=== PATIENT | male | born 1955 | race Two or more races ===

== ENCOUNTER 2022-03-27 11:47 | Inpatient (IN) | payer MEDICARE, OTHER ==
[~2022-03-27] VITALS: Ht 175.3 cm; Wt 59.9 kg
--- NOTE | 2022-03-27 11:51 | NUR ---
To ER bed 11, ORLINA RA102" From Home Abdominal pain/constipation x3d. Nausea" Abdomen distended/bloated, aaox0, breathing even and non labored, connected to monitor
[2022-03-27] MEDS ORDERED: PANTOPRAZOLE 40 MG VIAL ONE (12:12)
--- NOTE | 2022-03-27 12:27 | NUR ---
TAKEN TO CT VIA ALE
[2022-03-27] MEDS ORDERED: IV NS 0.9% 500 ML BAG IV ONE (12:30)
[2022-03-27] MEDS ORDERED: PANTOPRAZOLE 40 MG VIAL IV ONE (12:30)
[2022-03-27 12:33] LABS: BASOPHILS % (AUTO) 0.4 % (0.0-2.0); EOSINOPHILS % (AUTO) 1.8 % (0.0-6.0); HEMATOCRIT 32 % (39-51); HEMOGLOBIN 10.3 g/dL (13.5-17.5); LYMPHOCYTES % (AUTO) 16.2 % (20.0-44.0); MEAN CORPUSCULAR HGB CONC 32 g/dl (31.0-36.0); MEAN CORPUSCULAR VOLUME 63 fL (80-96); MONOCYTES # (AUTO) 0.7 K/uL (0.1-1.30); NEUTROPHILS # (AUTO) 4.3 K/uL (1.8-8.9); NEUTROPHILS % (AUTO) 70.6 % (43.0-81.0); PLATELET COUNT (AUTO) 161 K/uL (150-450); RED BLOOD CELL COUNT(AUTO) 5.15 MIL/uL (4.5-6.0); WHITE BLOOD COUNT (AUTO) 6.1 K/uL (4.3-11.0)
--- NOTE | 2022-03-27 12:50 | NUR ---
URINE COLLECTED AND SENT TO LAB
[2022-03-27 12:51] LABS: ALBUMIN 3.8 g/dL (3.4-5.0); BILIRUBIN,DIRECT 0.2 mg/dL (0.0-0.2); CALCIUM, SERUM 8.4 mg/dL (8.5-10.1); CREATININE 1.2 mg/dL (0.6-1.3); POTASSIUM 3.2 mmol/L (3.5-5.1); TOTAL PROTEIN, SERUM 7.6 g/dL (6.4-8.2)
--- NOTE | 2022-03-27 13:19 | NUR ---
SON CASTILLO [phone] SON FIORDALIZA [phone]
--- NOTE | 2022-03-27 13:19 | NUR ---
DR. BLOUNT SPEAKING WITH DR. REECE.
--- NOTE | 2022-03-27 13:21 | NUR ---
CALLED DR. WAHL [phone] OPTION 2 LEFT VM
[2022-03-27 13:22] LABS: BILIRUBIN,URINE NEGATIVE (NEGATIVE); LEUKOCYTE ESTERASE ,URINE NEGATIVE (NEGATIVE); NITRITE, URINE NEGATIVE (NEGATIVE); PROTEIN,URINE NEGATIVE (NEGATIVE); UGLUCOSE NEGATIVE (NEGATIVE); UROBILINOGEN,URINE 0.2 EU/dL (0.2)
--- NOTE | 2022-03-27 13:23 | NUR ---
COVID SWAB DONE AND SENT TO LAB
[2022-03-27 13:24] LABS: COLOR,URINE STRAW (YELLOW)
--- NOTE | 2022-03-27 13:50 | NUR ---
DR REECE TALKING TO THE WASI,PATIENT'S ON
[2022-03-27] MEDS ORDERED: ONDANSETRON HCL/PF 4 MG/2 ML VIAL IVP ONE (14:00)
[2022-03-27] MEDS ORDERED: MORPHINE SULFATE INJ 2 MG/ML DISP.SYRIN IV ONE (14:00)
[2022-03-27] MEDS ORDERED: ASPI-1169 PO (14:06)
[2022-03-27] MEDS ORDERED: CARV3.12 PO (14:06)
[2022-03-27] MEDS ORDERED: METF-440 PO (14:06)
[2022-03-27] MEDS ORDERED: ONDANSETRON HCL/PF 4 MG/2 ML VIAL ONE (14:07)
[2022-03-27] MEDS ORDERED: MORPHINE SULFATE INJ 4 MG/ML DISP.SYRIN ONE (14:08)
[2022-03-27] MEDS ORDERED: IV NS 0.9% 1,000 ML IV SCH (14:30)
[2022-03-27] MEDS ORDERED: ONDANSETRON HCL/PF 4 MG/2 ML VIAL IVP PRN (14:30)
[2022-03-27] MEDS ORDERED: hydrALAZINE HCL IV 20 MG VIAL IV PRN (14:30)
[2022-03-27] MEDS ORDERED: MORPHINE SULFATE INJ 2 MG/ML DISP.SYRIN IV PRN (14:30)
[2022-03-27] MEDS ORDERED: ACETAMINOPHEN 325 MG TABLET PO PRN (14:30)
--- NOTE | 2022-03-27 14:48 | NUR ---
PATIENT WILL HAVE SIGMOIDOSCOPY WITH DR SCHREIBER AT 7PM, PT WILL REMAIN NPO, SON AT BEDSIDE AWARE
--- NOTE | 2022-03-27 15:25 | NUR ---
CALLED PAULA MOMIN FOR CONSENT, DID NOT PRODUCTION CLERK, LEFT A MESSAGE
--- NOTE | 2022-03-27 15:26 | NUR ---
PATIENT PAULA MOMIN CANNOT DECIDE YET IF HE'LL GIVE CONSENT FOR SIGMOIDOSCOPY, NG TUBE AND ENEMA
[2022-03-27] MEDS: DEXTROSE 50%-WATER 50 ML DISP.SYRIN IV PRN (15:30)
[2022-03-27] MEDS: BLOOD SUGAR DIAGNOSTIC 1 EACH STRIP IN SCH ×3 (15:30→21:59)
[2022-03-27] MEDS ORDERED: DEXTROSE 50%-WATER 50 ML DISP.SYRIN ONE (16:12)
[2022-03-27] MEDS: SOD FERRIC GLUC 125 MG in IV NS 0.9% 100 ML IV SCH (16:25)
--- NOTE | 2022-03-27 16:31 | NUR ---
room 311-2
--- NOTE | 2022-03-27 17:02 | NUR ---
TRANSFERRED TO BED 311 IN STABLE CONDITION, BEDSIDE REPORT GIVEN TO BEATRIZ MYERS FOR ROGERIO
[2022-03-27] MEDS: POTASSIUM CL. PREMIX PERIPHER. 50 ML IV SCH ×4 (18:55→22:25)
[2022-03-27] MEDS ORDERED: MORPHINE SULFATE INJ 4 MG/ML DISP.SYRIN IV ONE (19:00)
--- NOTE | 2022-03-27 19:15 | NUR ---
RN NOTE RECEIVED REPORT FROM JOSEPHINE MYERS. PT STILL DOWN IN O.R. AT THIS TIME.
[2022-03-27 20:00] VITALS: BP 135/54
[2022-03-27] MEDS ORDERED: ANESTHESIA TRAY IN PYXIS 1 EA TRAY MC ONE (20:07)
--- NOTE | 2022-03-27 20:20 | NUR ---
RN NOTE PT STILL DOWN IN O.R. AT THIS TIME
[2022-03-27] MEDS ORDERED: ACETAMINOPHEN 650 MG/SUPP.RECT RC PRN (20:30)
--- NOTE | 2022-03-27 20:34 | NUR ---
RN NOTE PT BACK FROM O.R. POST-SIGMOIDOSCOPY BY . REPORT RECEIVED FROM RNSARAH. PT AWAKE, NONVERBAL. VS 135/54, 51, 18, 97.3, 99%. PT TO CONTINUE NPO STATUS. PT IN NO ACUTE DISTRESS. WILL CONT TO MONITOR
[2022-03-27 21:00] VITALS: BP 135/54
[2022-03-27] MEDS: PANTOPRAZOLE 40 MG VIAL IV SCH (21:22)
[2022-03-27] MEDS: HEPARIN SODIUM, PORCINE 5000 UNITS/1 ML VIAL SQ SCH (21:45)
--- NOTE | 2022-03-27 22:00 | NUR ---
RN NOTE BS 68. PT S/P SIGMOIDOSCOPY EARLIER TONIGHT AND CONTINUES ON NPO STATUS. ON-CALL HOSPITALIST MAUREEN BROOKS INFORMED
--- NOTE | 2022-03-27 22:15 | NUR ---
RN NOTE RECEIVED NEW ORDERS FROM CECILIA CHANG TO CHANGE IVF NS TO D5NS @100ML/HR. NOTED AND CARRIED OUT.
[2022-03-27] MEDS: IV D5/ 0.9% NACL 1,000 ML IV SCH (22:26)
--- NOTE | 2022-03-27 23:20 | NUR ---
RN NOTE SON, MERRILL ([phone]) CALLED AND UPDATED ON PT'S STATUS. HE WILL CALL BACK IN AM TO GET UPDATE FROM MD RE SIGMOIDOSCOPY.
[2022-03-28] VITALS: BP 120/65
[2022-03-28 04:00] VITALS: BP 116/58
[2022-03-28] MEDS: BLOOD SUGAR DIAGNOSTIC 1 EACH STRIP IN SCH ×4 (06:16→22:22)
[2022-03-28 06:44] LABS: BASOPHILS % (AUTO) 0.5 % (0.0-2.0); EOSINOPHILS % (AUTO) 0.5 % (0.0-6.0); HEMATOCRIT 28 % (39-51); LYMPHOCYTES # (AUTO) 0.6 K/uL (0.8-4.8); LYMPHOCYTES % (AUTO) 12.4 % (20.0-44.0); MEAN CORPUSCULAR HGB CONC 32 g/dl (31.0-36.0); MEAN CORPUSCULAR VOLUME 63 fL (80-96); MONOCYTES # (AUTO) 0.5 K/uL (0.1-1.30); MONOCYTES % (AUTO) 10.5 % (2.0-12.0); NEUTROPHILS # (AUTO) 3.7 K/uL (1.8-8.9); NEUTROPHILS % (AUTO) 76.1 % (43.0-81.0); PLATELET COUNT (AUTO) 130 K/uL (150-450); RED BLOOD CELL COUNT(AUTO) 4.45 MIL/uL (4.5-6.0); WHITE BLOOD COUNT (AUTO) 4.9 K/uL (4.3-11.0)
--- NOTE | 2022-03-28 06:53 | NUR ---
RN NOTE BS THIS MORNING 103MG/DL. ONGOING IVF D5NS @100ML/HR AND SURJIT WELL. PT SLEPT WELL DURING THE SHIFT WITH NO S/S OF PAIN, NO GRIMACING/YELLING OUT NOTED. RESPIRATIONS EVEN/UNLABORED. F/C DRAINING CLEAR YELLOW URINE, OUTPUT 950 THIS SHIFT. PT IN NO ACUTE DISTRESS. SAFETY MEASURES MAINTAINED.
[2022-03-28] MEDS: IV D5/ 0.9% NACL 1,000 ML IV SCH ×3 (06:57→21:26)
[2022-03-28 07:31] LABS: ALBUMIN 2.8 g/dL (3.4-5.0); BILIRUBIN,TOTAL 0.7 mg/dL (0.2-1.0); CALCIUM, SERUM 7.9 mg/dL (8.5-10.1); MAGNESIUM 2.4 mg/dL (1.8-2.4); PHOSPHORUS 3.7 mg/dL (2.5-4.9); POTASSIUM 4.3 mmol/L (3.5-5.1); TOTAL PROTEIN, SERUM 5.9 g/dL (6.4-8.2)
--- NOTE | 2022-03-28 07:35 | NUR ---
ms rn received on bed, ,awake,oriented x1,not in any form of distress,respirations even and unlabored,no sob noted, lungs are diminish,abdomen soft,positive bowel sounds, no s/s of pain at this time,came in w/ dx of volvulus, s/o sigmoidoscopy last night ,will monitor patient.
--- NOTE | 2022-03-28 10:00 | NUR ---
ms vann npo at this time, was seen by rich stanley/ orders made and carried out.
[2022-03-28] MEDS: HEPARIN SODIUM, PORCINE 5000 UNITS/1 ML VIAL SQ SCH ×2 (10:56→21:21)
[2022-03-28] MEDS: DEXTROSE 50%-WATER 50 ML DISP.SYRIN IV PRN ×2 (11:03→11:56)
[2022-03-28] MEDS: SOD FERRIC GLUC 125 MG in IV NS 0.9% 100 ML IV SCH (14:19)
--- NOTE | 2022-03-28 18:00 | NUR ---
ms rn was able to call and spoke w/ dr. adair w/ order to ok to feed patient, blood sugar - 76, gave orange juice and crackers, tolerated well, will order food for breakfast
--- NOTE | 2022-03-28 19:20 | NUR ---
ms rn bs now - 138 - no coverage given, patient is sleeping now, endorsed tonight shift.
--- NOTE | 2022-03-28 19:30 | NUR ---
MS RN OPENING NOTE RECEIVED PATIENT IN BED, A/OX1, COOPERATIVE. PATIENT'S SON AT BEDSIDE. NO S/S OF APPARENT DISTRESS ON ROOM AIR. NOT EXHIBITING PAIN VIA FLACC. ABDOMEN NOTED TO BE DISTENDED, SOFT AND AIRY DURING PALPATION. IV D5 NS RUNNING @100MLS/HR. SAFETY IN PLACE WILL CONTINUE WITH THE PLAN OF CARE FOR PATIENT.
[2022-03-28 20:00] VITALS: BP_SYST 135; BP_SYST 137; BP_DIAS 72
[2022-03-28] MEDS: PANTOPRAZOLE 40 MG VIAL IV SCH (20:04)
[2022-03-28] MEDS: INSULIN REGULAR, HUMAN 100 UNIT/ML 3 ML VIAL SQ PRN (22:33)
[2022-03-29] MEDS: IV D5/ 0.9% NACL 1,000 ML IV SCH (05:55)
[2022-03-29] MEDS: INSULIN REGULAR, HUMAN 100 UNIT/ML 3 ML VIAL SQ PRN (06:43)
[2022-03-29] MEDS: BLOOD SUGAR DIAGNOSTIC 1 EACH STRIP IN SCH ×2 (06:43→12:08)
--- NOTE | 2022-03-29 06:43 | NUR ---
MS RN NOTE BLOOD SUGAR 101 THIS AM. NO COVERAGE NEEDED.
--- NOTE | 2022-03-29 06:45 | NUR ---
MS RN CLOSING NOTE PATIENT IN BED, A/OX1, OBEYS COMMANDS AND ABLE TO MAKE NEEDS KNOWN WITH GARBLED SPEECH. NO S/S OF APPARENT DISTRESS ON ROOM AIR. NOT EXHIBITING PAIN VIA FLACC. ABDOMEN SOFT AND TENDER TO TOUCH. PATIENT HAD X1 BM THIS AM. D5 NS RUNNING @100MLS/HR. NEEDS ATTENDED. ALL SCHEDULED MEDICATIONS ADMINISTERED. SAFETY KEPT IN PLACE THE WHOLE SHIFT. WILL ENDORSE TO MORNING SHIFT RN FOR CONTINUITY OF CARE.
--- NOTE | 2022-03-29 07:19 | NUR ---
MS RN NOTE PATIENT CRYING OUT LOUD AT THIS TIME. ASSUMING IT'S PAIN. GIVEN MORPHINE FOR PAIN VIA FLACC.
--- NOTE | 2022-03-29 07:35 | NUR ---
ms rn received on bed, awake,alert,oriented x1,not in any form of distress, respirations even and unlabored,no sob noted, lungs are diminished,abdomen soft,positive dowel sounds denies pain at this time, silva to gravity intact w/ yellowish urine output, will monitor patient.
[2022-03-29 07:58] VITALS: BP 158/75
--- NOTE | 2022-03-29 08:30 | NUR ---
ms rn feed patient tolerated well w/o vomiting,had one bm at this time.
[2022-03-29 08:33] LABS: BASOPHILS % (AUTO) 0.7 % (0.0-2.0); EOSINOPHILS % (AUTO) 1.7 % (0.0-6.0); HEMATOCRIT 31 % (39-51); HEMOGLOBIN 9.7 g/dL (13.5-17.5); LYMPHOCYTES # (AUTO) 0.9 K/uL (0.8-4.8); LYMPHOCYTES % (AUTO) 21.7 % (20.0-44.0); MEAN CORPUSCULAR HGB CONC 31 g/dl (31.0-36.0); MEAN CORPUSCULAR VOLUME 63 fL (80-96); MONOCYTES # (AUTO) 0.3 K/uL (0.1-1.30); MONOCYTES % (AUTO) 7.9 % (2.0-12.0); NEUTROPHILS # (AUTO) 2.7 K/uL (1.8-8.9); PLATELET COUNT (AUTO) 150 K/uL (150-450); RED BLOOD CELL COUNT(AUTO) 4.93 MIL/uL (4.5-6.0); WHITE BLOOD COUNT (AUTO) 3.9 K/uL (4.3-11.0)
[2022-03-29] MEDS: PANTOPRAZOLE 40 MG VIAL IV SCH (09:02)
[2022-03-29] MEDS: HEPARIN SODIUM, PORCINE 5000 UNITS/1 ML VIAL SQ SCH (09:04)
[2022-03-29 09:05] LABS: ALBUMIN 3.2 g/dL (3.4-5.0); BILIRUBIN,TOTAL 0.9 mg/dL (0.2-1.0); CALCIUM, SERUM 8.5 mg/dL (8.5-10.1); POTASSIUM 3.6 mmol/L (3.5-5.1); TOTAL PROTEIN, SERUM 6.8 g/dL (6.4-8.2)
--- NOTE | 2022-03-29 09:30 | NUR ---
ms rn was seen by md stanley/ order to be discharge today.
[2022-03-29] MEDS ORDERED: FERR325T23 PO (10:30)
[2022-03-29] MEDS ORDERED: PANT40TA2 PO (10:30)
--- NOTE | 2022-03-29 11:33 | NUR ---
ms rn bs - 136- coverage not given patient is not eating much and hx of hypoglycemia from previous shifts.
--- NOTE | 2022-03-29 12:00 | NUR ---
ms rn son was aware of the discharge, wants to speak w/ the doctor, gave epic number.
--- NOTE | 2022-03-29 12:30 | NUR ---
rn silva catheter removed, will monitor output.
--- NOTE | 2022-03-29 14:00 | NUR ---
ms rn patient had urine output moderate in amount,all needs attended.
--- NOTE | 2022-03-29 14:10 | NUR ---
ms nr son came to see patient, started to scream now.
[2022-03-29] MEDS: SOD FERRIC GLUC 125 MG in IV NS 0.9% 100 ML IV SCH (14:33)
--- NOTE | 2022-03-29 15:00 | NUR ---
ms bottom turning lathe turner instructions given,patient calm down now.
--- NOTE | 2022-03-29 15:30 | NUR ---
ms rn patient transported to home,all needs attended, no distress noted.
== END 2022-03-29 15:30 | disposition home or self-care (01) | DRG 345 ==
LOC: ER 11:52 → TRANSITION 15:01 → TELE 16:46 → MED 22:44
PROVIDERS: ADMIT Internal Medicine; ATTEND Internal Medicine
PROC: 0DSN8ZZ Reposition Sigmoid Colon, Via Natural or Artificial Opening Endoscopic (ICD-10-PCS; principal; 2022-03-27)
PROC: 0D9N8ZZ Drainage of Sigmoid Colon, Via Natural or Artificial Opening Endoscopic (ICD-10-PCS; 2022-03-27)
DX: K56.2 Volvulus (principal); I69.351 Hemiplegia and hemiparesis following cerebral infarction affecting right dominant side; E87.1 Hypo-osmolality and hyponatremia; N13.30 Unspecified hydronephrosis; E44.0 Moderate protein-calorie malnutrition; E86.0 Dehydration; E87.6 Hypokalemia; I69.320 Aphasia following cerebral infarction; Z20.822 Contact with and (suspected) exposure to COVID-19; I10 Essential (primary) hypertension; E78.00 Pure hypercholesterolemia, unspecified; E11.9 Type 2 diabetes mellitus without complications; D50.9 Iron deficiency anemia, unspecified; E86.1 Hypovolemia; E88.09 Other disorders of plasma-protein metabolism, not elsewhere classified
CPT/HCPCS: 36415; 45330; 71045-TC; 80048-TC; 80053-TC; 80076-TC; 82962-TC; 83605-TC; 83690-TC; 83735-TC; 84100-TC; 85025-TC; 85730-TC; 87081-TC; C9113; C9803; G0378; J1644; J2270; J2405; J2704; J2916; J3480; J3490; J7030; J7042

== ENCOUNTER 2022-06-15 03:43 | Inpatient (IN) | payer MEDICARE, OTHER ==
[~2022-06-15] VITALS: Ht 177.8 cm; Wt 54.9 kg
[~2022-06-15 03:43] MED LIST: ASPI-1169 PO; CARV3.12 PO; FERR325T23 PO; METF-440 PO; PANT40TA2 PO
--- NOTE | 2022-06-15 04:00 | NUR ---
VITALIY FROM HOME FOR MORE ALTERED THAN NORMAL LWK@0300 HX OF STROKE. RECEIVED PATIENT AAOX1. ACCOMPANIED BY SON PALLIATIVE CARE NURSE. PATIENT HAS RIGHT SIDED WEAKNESS, - CP, -SOB. WITH IV CANNULA G20 ON LEFT AC. ATTACHED TO MONITOR, VITALS CHECKED AND BEING MONITORED
--- NOTE | 2022-06-15 04:05 | NUR ---
COVID SWAB DONE AND SENT TO LAB
--- NOTE | 2022-06-15 04:05 | NUR ---
EKG DONE AT BEDSIDE
--- NOTE | 2022-06-15 04:15 | NUR ---
IV CANNULA G20 INSERTED ON LEFT AC. BLOOD DRAWN AND SENT TO LAB
--- NOTE | 2022-06-15 04:22 | NUR ---
SEEN BY DR RAINES AT BEDSIDE
[2022-06-15 04:40] LABS: BASOPHILS % (AUTO) 0.8 % (0.0-2.0); EOSINOPHILS % (AUTO) 1.1 % (0.0-6.0); HEMATOCRIT 34 % (39-51); HEMOGLOBIN 10.8 g/dL (13.5-17.5); LYMPHOCYTES # (AUTO) 0.7 K/uL (0.8-4.8); LYMPHOCYTES % (AUTO) 13.7 % (20.0-44.0); MEAN CORPUSCULAR HGB CONC 32 g/dl (31.0-36.0); MEAN CORPUSCULAR VOLUME 64 fL (80-96); MONOCYTES # (AUTO) 0.2 K/uL (0.1-1.30); MONOCYTES % (AUTO) 4.1 % (2.0-12.0); NEUTROPHILS # (AUTO) 3.9 K/uL (1.8-8.9); NEUTROPHILS % (AUTO) 80.3 % (43.0-81.0); PLATELET COUNT (AUTO) 163 K/uL (150-450); RED BLOOD CELL COUNT(AUTO) 5.37 MIL/uL (4.5-6.0); WHITE BLOOD COUNT (AUTO) 4.9 K/uL (4.3-11.0)
--- NOTE | 2022-06-15 04:50 | NUR ---
PT BROUGHT TO CT DEPT
--- NOTE | 2022-06-15 04:54 | NUR ---
CAME BACK FROM CT.
[2022-06-15 05:05] LABS: CALCIUM, SERUM 8.9 mg/dL (8.5-10.1); CARBON DIOXIDE 32 mmol/L (21-32); CHLORIDE 106 mmol/L (98-107); CREATININE 1.1 mg/dL (0.6-1.3); GLUCOSE 99 mg/dL (74-106); POTASSIUM 4.6 mmol/L (3.5-5.1); SODIUM SERUM 143 mmol/L (136-145); UREA NITROGEN, BLOOD 14 mg/dL (7-18)
[2022-06-15] MEDS ORDERED: DEXTROSE 50%-WATER 50 ML DISP.SYRIN IV PRN (07:00)
[2022-06-15] MEDS ORDERED: ZOLPIDEM TARTRATE 5 MG TABLET PO PRN (07:00)
[2022-06-15] MEDS ORDERED: Z GUARD REMEDY 4 OZ OINT TP PRN (07:00)
[2022-06-15] MEDS ORDERED: MAGNESIUM HYDROXIDE 30 ML UDC PO PRN (07:00)
[2022-06-15] MEDS ORDERED: ONDANSETRON HCL/PF 4 MG/2 ML VIAL IVP PRN (07:00)
[2022-06-15] MEDS ORDERED: MAG HYDROX/AL HYDROX/SIMETH 30 ML UDC PO PRN (07:00)
[2022-06-15] MEDS: BLOOD SUGAR DIAGNOSTIC 1 EACH STRIP IN SCH ×4 (07:30→21:24)
[2022-06-15 08:16] LABS: BILIRUBIN,URINE NEGATIVE (NEGATIVE); COLOR,URINE YELLOW (YELLOW); LEUKOCYTE ESTERASE ,URINE NEGATIVE (NEGATIVE); NITRITE, URINE NEGATIVE (NEGATIVE); PH,URINE 7.5 (5.0-8.0); PROTEIN,URINE NEGATIVE (NEGATIVE); UGLUCOSE NEGATIVE (NEGATIVE); UROBILINOGEN,URINE 0.2 EU/dL (0.2)
[2022-06-15] MEDS ORDERED: SIMV-49 PO (08:23)
[2022-06-15] MEDS ORDERED: [UNRECOGNIZED DRUG - REMARK] PO (08:24)
[2022-06-15] MEDS: CARVEDILOL 3.125 MG TABLET PO SCH ×2 (09:00→16:36)
[2022-06-15] MEDS ORDERED: PANTOPRAZOLE 40 MG VIAL IV SCH (09:00)
[2022-06-15 09:11] LABS: THYROID STIMULATING HORMONE 1.409 uIU/mL (0.358-3.74)
--- NOTE | 2022-06-15 09:49 | NUR ---
BED 322-1
--- NOTE | 2022-06-15 10:12 | NUR ---
REPORT GIVEN TO NURSE TAMEZ FOR ROGERIO
--- NOTE | 2022-06-15 10:20 | NUR ---
TRANSFERRED TO BED 322 IN STABLE CONDITION
[2022-06-15] MEDS: FERROUS SULFATE (325 MG) 325 MG/TAB TABLET PO SCH ×3 (10:41→16:36)
[2022-06-15] MEDS: IV D5/ 0.9% NACL 1,000 ML IV PRN (10:41)
[2022-06-15] MEDS: ASPIRIN 81 MG TAB.CHEW PO SCH (10:41)
[2022-06-15] MEDS: ACETAMINOPHEN 325 MG TABLET PO PRN ×2 (11:32→12:22)
[2022-06-15] MEDS: INSULIN REGULAR, HUMAN 100 UNIT/ML 3 ML VIAL SQ PRN (12:27)
[2022-06-15] MEDS ORDERED: IOHEXOL-300 100 ML VIAL IV ONE (14:22)
[2022-06-15] MEDS ORDERED: CT SWABBABLE VALVE TRANS SET 1 EA INFUS.SET MC ONE (14:22)
[2022-06-15] MEDS ORDERED: IV NS 0.9% 250 ML IV ONE (14:22)
--- NOTE | 2022-06-15 19:30 | NUR ---
MANAGER OF HEALTH OPENING NOTE RECEIVED PT AWAKE IN BED. SON AT BEDSIDE. CONFUSED AND UNABLE TO COMMUNICATE NEEDS. PT STABLE ON ROOM AIR. NO SOB OR S/S OF RESPIRATORY DISTRESS. BREATHING EVEN AND UNLABORED. ON EXTERNAL MILK ROUTE DELIVERER READING SB 54 BPM. IV ACCESS L HAND AND LAC 20 GAUGE, INTACT AND PATENT, RUNNING D5NS @ 75 ML/HR. SAFETY PRECAUTIONS IN PLACE. BED IN LOWEST LOCKED POSITION, HOB ELEVATED, SIDE RAILS UP X3, AND CALL LIGHT AND TABLE WITHIN REACH. ALL NEEDS MET AT THIS TIME.
[2022-06-15] MEDS: BACLOFEN (10 MG) 10 MG TABLET PO SCH (20:06)
[2022-06-15 20:20] VITALS: BP 165/88
[2022-06-15] MEDS: POLYETHYLENE GLYCOL 3350 17 GM POWD.PACK PO SCH (21:24)
[2022-06-16] VITALS (7 sets, daily range): BP systolic 97–170; BP diastolic 51–89
[2022-06-16] MEDS: IV D5/ 0.9% NACL 1,000 ML IV PRN ×2 (01:07→19:12)
[2022-06-16 06:34] LABS: BASOPHILS % (AUTO) 0.3 % (0.0-2.0); EOSINOPHILS % (AUTO) 0.7 % (0.0-6.0); HEMATOCRIT 31 % (39-51); HEMOGLOBIN 9.9 g/dL (13.5-17.5); LYMPHOCYTES # (AUTO) 0.9 K/uL (0.8-4.8); MEAN CORPUSCULAR HGB CONC 32 g/dl (31.0-36.0); MEAN CORPUSCULAR VOLUME 63 fL (80-96); MONOCYTES # (AUTO) 0.4 K/uL (0.1-1.30); NEUTROPHILS # (AUTO) 4.1 K/uL (1.8-8.9); PLATELET COUNT (AUTO) 155 K/uL (150-450); WHITE BLOOD COUNT (AUTO) 5.4 K/uL (4.3-11.0)
[2022-06-16] MEDS: BLOOD SUGAR DIAGNOSTIC 1 EACH STRIP IN SCH ×4 (06:36→22:06)
--- NOTE | 2022-06-16 06:44 | NUR ---
AERIAL GUNNER SUPERINTENDENT CLOSING NOTE PT AWAKE IN BED. ABLE TO COMMUNICATE NEEDS WITH YES OR NO QUESTIONS. PT STABLE ON ROOM AIR. NO SOB OR S/S OF RESPIRATORY DISTRESS. BREATHING EVEN AND UNLABORED. ON EXTERNAL SAP SOLUTION MANAGER CONSULTANT READING SB 55 BPM. IV ACCESS L HAND AND LAC 20 GAUGE, INTACT AND PATENT, RUNNING D5NS @ 75 ML/HR. ALL DUE MEDS GIVEN ORDERED. TURNED AND REPOSITIONED Q2H. SAFETY PRECAUTIONS IN PLACE AT ALL TIMES. BED IN LOWEST LOCKED POSITION, HOB ELEVATED, SIDE RAILS UP X3, AND CALL LIGHT AND TABLE WITHIN REACH. ALL NEEDS MET AT THIS TIME AND WILL ENDORSE TO ONCOMING NURSE FOR ROGERIO.
[2022-06-16 07:09] LABS: CALCIUM, SERUM 8.6 mg/dL (8.5-10.1); CREATININE 0.9 mg/dL (0.6-1.3); MAGNESIUM 2.5 mg/dL (1.8-2.4); PHOSPHORUS 4.5 mg/dL (2.5-4.9); POTASSIUM 3.8 mmol/L (3.5-5.1)
[2022-06-16] MEDS: ENOXAPARIN SODIUM 40 MG/0.4 ML DISP.SYRIN SQ SCH (07:41)
--- NOTE | 2022-06-16 07:48 | NUR ---
GASKET MAKER OPENING NOTES: RECEIVED PT IN BED AWAKE. CONFUSED AND NEED FREQUENT REORIENTATION NEEDED. NO SOB OR CARDIAC DISTRESS NOTED. ON ROOM AIR AND TOLERATING WELL. ON [place] FLAKER WITH CURRENT READING OF SINUS BARON @54PM. DENIES ANY PAIN AT THIS TIME. WITH IV ACCESS ON L HAND GAUGE 20, LAC GAUGE 20 PATENT AND INTACT WITH D5NS @75ML/HR. SAFETY PRECAUTIONS MAINTAINED: BED LOCKED AND IN LOWEST POSITION. SIDE RAILS UP X 2. CALL LIGHT IN EASY REACH. KEPT RESTED AND COMFORTABLE. WILL MONITOR ACCORDINGLY.
--- NOTE | 2022-06-16 08:39 | NUR ---
RN NOTES: SEEN BY ST AND ST ORDERED TO ADVANCE DIET TO SOFT DIET AND THIN LIQUIDS.
[2022-06-16] MEDS: BACLOFEN (10 MG) 10 MG TABLET PO SCH ×3 (08:54→17:13)
[2022-06-16] MEDS: PANTOPRAZOLE 40 MG TABLET.DR PO SCH (08:54)
[2022-06-16] MEDS: ASPIRIN 81 MG TAB.CHEW PO SCH (08:55)
[2022-06-16] MEDS: CARVEDILOL 3.125 MG TABLET PO SCH ×2 (08:55→17:00)
[2022-06-16] MEDS: SIMVASTATIN 20 MG TABLET PO SCH (17:13)
[2022-06-16] MEDS ORDERED: NA PHOS,M-B/NA PHOS,DI-BA 1 EA ENEMA RC ONE (18:00)
--- NOTE | 2022-06-16 18:54 | NUR ---
FUR IRONER CLOSING NOTES: RECEIVED PT IN BED AWAKE ON HIGH CONFUSED AND NEED FREQUENT REORIENTATION NEEDED. NO SOB OR CARDIAC DISTRESS NOTED. ON ROOM AIR AND TOLERATING WELL. ON [place] PAINTER WITH CURRENT READING OF SINUS BARON @58PM. DENIES ANY PAIN AT THIS TIME. WITH IV ACCESS ON L HAND GAUGE 20, LAC GAUGE 20 PATENT AND INTACT WITH D5NS @75ML/HR. SAFETY PRECAUTIONS MAINTAINED: BED LOCKED AND IN LOWEST POSITION. SIDE RAILS UP X 2. CALL LIGHT IN EASY REACH. KEPT RESTED AND COMFORTABLE. ENDORSED TO SHIP LINER FOR CONTINUITY OF CARE.
--- NOTE | 2022-06-16 21:20 | NUR ---
SUPERVISOR GAME FARM OPENING NOTES: RECEIVED PT IN BED AWAKE ON VERY CONFUSED AND NEED FREQUENT REORIENTATION NEEDED. NO SOB OR CARDIAC DISTRESS NOTED. ON ROOM AIR AND TOLERATING WELL. ON SUPERVISOR SELF SERVICE STORE WITH CURRENT READING OF SINUS BARON @58PM. DENIES ANY PAIN AT THIS TIME. WITH IV ACCESS ON L HAND GAUGE 20, LAC GAUGE 20 PATENT AND INTACT WITH D5NS @75ML/HR. SAFETY PRECAUTIONS MAINTAINED: BED LOCKED AND IN LOWEST POSITION. SIDE RAILS UP X 2. CALL LIGHT IN EASY REACH. KEPT RESTED AND COMFORTABLE. WILL CONTINUE TO MONITOR.
[2022-06-16] MEDS: POLYETHYLENE GLYCOL 3350 17 GM POWD.PACK PO SCH (21:35)
--- NOTE | 2022-06-16 21:35 | NUR ---
ELECTRICAL CONSTRUCTION PROJECT MANAGER NOTES PT REFUSED MIRALAX ENEMA WAS GIVEN DURING AM PT HAVING MANY BOWEL MOVEMENTS.
[2022-06-16] MEDS: INSULIN REGULAR, HUMAN 100 UNIT/ML 3 ML VIAL SQ PRN (22:06)
[2022-06-17] VITALS: BP 158/111
[2022-06-17 04:00] VITALS: BP 160/83
--- NOTE | 2022-06-17 06:35 | NUR ---
WEAVER HAND LOOM OPENING NOTES: RECEIVED PT IN BED AWAKE ON VERY CONFUSED AND NEED FREQUENT REORIENTATION NEEDED. NO SOB OR CARDIAC DISTRESS NOTED. ON ROOM AIR AND TOLERATING WELL. ON DRAGLINE OPERATOR HELPER WITH CURRENT READING OF SINUS BARON DENIES ANY PAIN AT THIS TIME. WITH IV ACCESS ON L HAND GAUGE 20, LAC GAUGE 20 PATENT AND INTACT WITH D5NS @75ML/HR. SAFETY PRECAUTIONS MAINTAINED: BED LOCKED AND IN LOWEST POSITION. SIDE RAILS UP X 2. CALL LIGHT IN EASY REACH. KEPT RESTED AND COMFORTABLE. WILL ENDORSE CARE TO DAY SHIFT NURSE.
[2022-06-17] MEDS: ENOXAPARIN SODIUM 40 MG/0.4 ML DISP.SYRIN SQ SCH (06:48)
[2022-06-17] MEDS: BLOOD SUGAR DIAGNOSTIC 1 EACH STRIP IN SCH ×4 (06:49→22:03)
[2022-06-17] MEDS: INSULIN REGULAR, HUMAN 100 UNIT/ML 3 ML VIAL SQ PRN ×3 (06:49→22:03)
[2022-06-17 08:00] VITALS: BP 145/68
[2022-06-17 08:18] LABS: BASOPHILS % (AUTO) 0.4 % (0.0-2.0); EOSINOPHILS % (AUTO) 0.8 % (0.0-6.0); HEMATOCRIT 32 % (39-51); HEMOGLOBIN 10.1 g/dL (13.5-17.5); LYMPHOCYTES # (AUTO) 0.7 K/uL (0.8-4.8); LYMPHOCYTES % (AUTO) 10.7 % (20.0-44.0); MEAN CORPUSCULAR HGB CONC 32 g/dl (31.0-36.0); MEAN CORPUSCULAR VOLUME 64 fL (80-96); MONOCYTES # (AUTO) 0.4 K/uL (0.1-1.30); MONOCYTES % (AUTO) 6.9 % (2.0-12.0); NEUTROPHILS # (AUTO) 5.3 K/uL (1.8-8.9); NEUTROPHILS % (AUTO) 81.2 % (43.0-81.0); PLATELET COUNT (AUTO) 161 K/uL (150-450); RED BLOOD CELL COUNT(AUTO) 5.02 MIL/uL (4.5-6.0); WHITE BLOOD COUNT (AUTO) 6.5 K/uL (4.3-11.0)
[2022-06-17 08:33] LABS: CALCIUM, SERUM 8.9 mg/dL (8.5-10.1); MAGNESIUM 2.5 mg/dL (1.8-2.4); POTASSIUM 4.3 mmol/L (3.5-5.1)
[2022-06-17] MEDS: PANTOPRAZOLE 40 MG TABLET.DR PO SCH (09:10)
[2022-06-17] MEDS: ASPIRIN 81 MG TAB.CHEW PO SCH (09:10)
[2022-06-17] MEDS: BACLOFEN (10 MG) 10 MG TABLET PO SCH ×3 (09:10→17:41)
[2022-06-17 12:00] VITALS: BP 142/76
[2022-06-17] MEDS: IV D5/ 0.9% NACL 1,000 ML IV PRN (14:21)
[2022-06-17 16:00] VITALS: BP_SYST 126; BP_SYST 130; BP_DIAS 60; BP_DIAS 74
[2022-06-17] MEDS: SIMVASTATIN 20 MG TABLET PO SCH (17:41)
--- NOTE | 2022-06-17 18:51 | NUR ---
MANAGER ADMINISTRATION CLOSING NOTES: PT IN BED AWAKE SITTING IN A CHAIR WITH FAMILY MEMBER AT BEDSIDE. APHASIC. NO SOB OR CARDIAC DISTRESS NOTED. ON ROOM AIR AND TOLERATING WELL. ON ELECTRONIC WARFARE LINGUIST WITH CURRENT READING OF SINUS BARON @57PM. WITH IV ACCESS ON L HAND GAUGE 20, LAC GAUGE 20 PATENT AND INTACT WITH D5NS @75ML/HR. SAFETY PRECAUTIONS MAINTAINED: BED LOCKED AND IN LOWEST POSITION. SIDE RAILS UP X 2. CALL LIGHT IN EASY REACH. KEPT RESTED AND COMFORTABLE. ENDORSED TO GOVERNMENT GAUGER FOR CONTINUITY OF CARE.
--- NOTE | 2022-06-17 19:10 | NUR ---
RN NOTES: RECEIVED AWAKE ON BED, SITTING ON THE COMMODE, HIS SON WAS WITH HIM, SHOUTING AND SAYING "AAAAAAA" ONE SYLLABLE ONLY, PER SON HE HAS CVA LONG TIME BACK AND HE CANT COMMUNICATE VERBALLY, ORIENTED TO UNIT AND STAFF WITH THE HELP OF HIS SON, A/O TO SELF ONLY, CVA RIGHT SIDED HEMIPARESIS, ON ROOM AIR, NON LABORED BREATHING, NO PAIN OR DISCOMFORT, INCONTINENT B/B, ABLE TO AMBULATE WITH ASSIST. -ON TELE MONITOR SB-48, PATIENT IS STABLE. -IV CANNULA ON THE LH G#20 AND LAC G#20 WITH IVF OF D5%NS AT 75 ML/HR
[2022-06-17 20:00] VITALS: BP 158/88
[2022-06-17] MEDS: ACETAMINOPHEN 325 MG TABLET PO PRN (20:59)
--- NOTE | 2022-06-17 20:59 | NUR ---
RN NOTES: REPOSITIONED WITH THE HELP OF HIS SON, HE REQUEST FOR PAIN MEDICATION FOR HIS FATHER,MILD PAIN, NON PHARMACOLOGIC INTERVENTION RENDERED, DIM LIT, SOFT MUSIC,
[2022-06-17] MEDS: POLYETHYLENE GLYCOL 3350 17 GM POWD.PACK PO SCH (21:04)
--- NOTE | 2022-06-17 21:26 | NUR ---
RN NOTES: BLOOD SUGAR CHECK=94, NO INSULIN PER SCALE.WILL CONTINUE TO MONITOR FOR SIGN OF HYPER/HYPOGLYCEMIA.
[2022-06-18] VITALS (7 sets, daily range): BP systolic 125–169; BP diastolic 61–90
[2022-06-18] MEDS: ENOXAPARIN SODIUM 40 MG/0.4 ML DISP.SYRIN SQ SCH (06:26)
[2022-06-18] MEDS: BLOOD SUGAR DIAGNOSTIC 1 EACH STRIP IN SCH ×4 (06:31→22:04)
--- NOTE | 2022-06-18 07:29 | NUR ---
AIRPLANE ELECTRICAL REPAIRER OPENING NOTE RECEIVED PT ASLEEP IN BED, EASILY AROUSED. PT IS APHASIC, CONFUSED AND UNABLE TO MAKE NEEDS KNOWN. REORIENTED PT NEEDED. ON RA, TOLERATING WELL. NO SOB NOTED. NOT IN ANY SIGN OF RESPIRATORY DISTRESS. ON CARDIAC TELE MONITOR WITH CURRENT READING OF SINUS BARON, HR 58. NO C/O CARDIAC DISTRESS VOICED AT THIS TIME. IV ACCESS IN LH G#20 AND LAC #20 INTACT, AND PATENT. SAFETY MEASURES IN PLACE: BED IN LOWEST AND LOCKED POSITION, SIDE RAILS UPX2, BED ALARM ON, AND CALL LIGHT WITHIN REACH. WILL CONTINUE TO MONITOR PT.
--- NOTE | 2022-06-18 07:51 | NUR ---
RN NOTES: KEPT ON CLOSE WATCH, NEEDS ANTICIPATED, FALL PRECAUTION OBSERVED, NO PAIN OR DISCOMFORT, ON PEST CONTROL SERVICE TECHNICIAN SB-48, STABLE, SPO2-98%ROOM AIR, IVF CONTINUE, FOR POSSIBLE DISCHARGE THIS MORNING, MORNING CARE RENDERED, CLEAN AND CHANGE.ENDORSED FOR CONTINUITY OF CARE.
[2022-06-18] MEDS: ASPIRIN 81 MG TAB.CHEW PO SCH (08:39)
[2022-06-18] MEDS: BACLOFEN (10 MG) 10 MG TABLET PO SCH ×3 (08:39→16:56)
[2022-06-18] MEDS: PANTOPRAZOLE 40 MG TABLET.DR PO SCH (08:39)
[2022-06-18] MEDS: INSULIN REGULAR, HUMAN 100 UNIT/ML 3 ML VIAL SQ PRN ×3 (11:48→21:17)
[2022-06-18] MEDS: IV D5/ 0.9% NACL 1,000 ML IV PRN (12:24)
[2022-06-18] MEDS: SIMVASTATIN 20 MG TABLET PO SCH (17:32)
[2022-06-18] MEDS: ACETAMINOPHEN 325 MG TABLET PO PRN (17:32)
--- NOTE | 2022-06-18 18:50 | NUR ---
RN NOTE RECEIVED A CALL FROM PT'S SON, MERRILL. PER WASJluis HE WOULD LIKE TO SPEAK WITH A DOCTOR HE HAS A LOT OF QUESTIONS TO ASK THE DOCTOR. PAGED DR. NICO SANCHEZ, AWAITING FOR HIS CALL BACK.
--- NOTE | 2022-06-18 18:52 | NUR ---
RN NOTE RECEIVED A CALL FROM DR. NICO SANCHEZ, PER DR. SANCHEZ, HE JUST SPOKE WITH THE SON, MERRILL.
--- NOTE | 2022-06-18 19:13 | NUR ---
MS RN CLOSING NOTE PT AWAKE IN BED WITH SON AT BEDSIDE. PT IS APHASIC, CONFUSED AND UNABLE TO MAKE NEEDS KNOWN. REORIENTED PT NEEDED. ON RA, TOLERATING WELL. NO SOB NOTED. NOT IN ANY SIGN OF RESPIRATORY DISTRESS. IV ACCESS IN LH G #20 SALINE LOCK AND LAC G #20 INTACT AND PATENT. ALL NEEDS ATTENDED. KEPT CLEAN AND COMFORTABLE. PT IS DISCHARGE, WAITING FOR [facility] TRANSPORTATION TO [facility]NA[facility] PT AT 2000. SKIN IS INTACT WITH NO SKIN ISSUES NOTED. ALL BELONGINGS ACCOUNTED FOR. ENDORSED TO VAN DRIVER HELPER NURSE, ELENOR OF PT'S DISCHARGE. SAFETY MEASURES IN PLACE: BED IN LOWEST AND LOCKED POSITION, SIDE RAILS UPX2, BED ALARM ON, AND CALL LIGHT WITHIN REACH.
--- NOTE | 2022-06-18 20:19 | NUR ---
RECEIVED PATIENT IN BED, ALERT AND AWAKE, NO DISTRESS, STABLE ON ROOM AIR, SPO2 97% AFEBRILE, WITH DISCHARGE ORDER, DISCUSSED WITH SON DISCHARGE PAPERS, CALLED [facility], ETA IS 2100.
[2022-06-18] MEDS: POLYETHYLENE GLYCOL 3350 17 GM POWD.PACK PO SCH (21:18)
--- NOTE | 2022-06-18 22:01 | NUR ---
PATIENT PICKED UP BY AMBULANCE AND LEFT AT 2130, PATIENT IN GOOD AND STABLE CONDITION, VS STABLE, ROOM AIR, NO DISTRESS, PERIPHERAL IV REMOVED AND SECURED WITH DRESSING, NO BLEEDING, SON WITH PATIENT. DISCHARGE PAPERS AND BELONGINGS GIVEN TO SON.
== END 2022-06-18 21:10 | disposition home health service (06) | DRG 56 ==
LOC: ER 03:45 → MED 09:47 → TELE 10:27
PROVIDERS: ADMIT Nurse Practitioner Family; ATTEND Nurse Practitioner Acute Care
DX: I69.398 Other sequelae of cerebral infarction (principal); G93.41 Metabolic encephalopathy; I69.351 Hemiplegia and hemiparesis following cerebral infarction affecting right dominant side; N13.30 Unspecified hydronephrosis; E11.9 Type 2 diabetes mellitus without complications; G20 Parkinson's disease; I69.320 Aphasia following cerebral infarction; I10 Essential (primary) hypertension; Z79.82 Long term (current) use of aspirin; Z87.891 Personal history of nicotine dependence; E78.5 Hyperlipidemia, unspecified; K59.00 Constipation, unspecified; R00.1 Bradycardia, unspecified; D50.9 Iron deficiency anemia, unspecified; Z79.84 Long term (current) use of oral hypoglycemic drugs
CPT/HCPCS: 36415; 70450-TC; 70551-TC; 71045-TC; 80048-TC; 80061-TC; 82607-TC; 82962-TC; 83540-TC; 83605-TC; 83735-TC; 84100-TC; 84443-TC; 84484-TC; 85025-TC; 87040-TC; 87081-TC; 92526; 92611-TC; 93307-TC; 97112-TC; 97116-TC; 97530-TC; C9113; C9803; G0378; J1650; J1815; J3490; J7042; J7050; Q9967